=== PATIENT | female | born 1960 | race Caucasian/White ===

== ENCOUNTER 2019-06-07 08:40 | Emergency (ER) | payer MEDICARE, OTHER ==
[~2019-06-07] VITALS: Ht 172.7 cm; Wt 117.9 kg
[~2019-06-07 08:40] MED LIST: ADVIL200 MG PO; ASPIR-LOW81 MG PO; CYMBALTA60 MG PO; FOLIC ACID1 MG PO; GLUCOPHAGE500 MG PO; MECLIZINE HCL25 MG PO; OXYBUTYNIN CHLOR5 MG PO; PROMETHAZINE HC25 M1 PO; SOD CITRATE-CIT15 ML PO; TRAMADOL HCL50 MG PO; TRANSDERM-SCOP1 EA TD
[2019-06-07] MEDS ORDERED: PRAVASTATIN SOD20 MG PO (09:04)
[2019-06-07] MEDS ORDERED: DULOXETINE HCL60 MG PO (09:06)
[2019-06-07] MEDS ORDERED: JANUVIA50 MG PO (09:06)
[2019-06-07] MEDS ORDERED: HYDROCHLOROTHIA25 MG PO (09:07)
[2019-06-07] MEDS ORDERED: MYRBETRIQ50 MG PO (09:09)
[2019-06-07] MEDS ORDERED: KEFLEX500 MG PO (12:35)
--- NOTE | 2019-06-08 21:41 | EKG ---
[facility] [address] [place], [place] [address] Signed Normal sinus rhythm Normal ECG Confirmed by JUDITH VIEYRA MD ([id number]) on 06/08/2019 9:41:01 PM Electronically Signed By: JUDITH VIEYRA MD 06/08/19 2141 PATIENT NAME: PABLO MCINTOSH Electrocardiogram DATE OF : 58 PHYSICIAN: JUDITH VIEYRA MD REPORT #: [id number] REPORT IS CONFIDENTIAL AND NOT TO BE RELEASED WITHOUT AUTHORIZATION
== END 2019-06-07 13:16 | disposition home or self-care (01) ==
LOC: ED 08:40
DX: N39.0 Urinary tract infection, site not specified (principal); F41.9 Anxiety disorder, unspecified; F32.9 Major depressive disorder, single episode, unspecified; I10 Essential (primary) hypertension; E11.9 Type 2 diabetes mellitus without complications; Z87.891 Personal history of nicotine dependence; Z79.899 Other long term (current) drug therapy
CPT/HCPCS: 71045; 80053; 81001; 84484; 85025; 87077; 87088; 87186; 93005; 93010; 96361; 96365; 99285-25; J0696; J7030

== ENCOUNTER 2020-02-21 10:49 | Emergency (ER) | payer MEDICARE, OTHER ==
[~2020-02-21] VITALS: Ht 172.7 cm; Wt 127.0 kg
[~2020-02-21 10:49] MED LIST changes: +DULOXETINE HCL60 MG PO; +HYDROCHLOROTHIA25 MG PO; +JANUVIA50 MG PO; +KEFLEX500 MG PO; +MYRBETRIQ50 MG PO; +PRAVASTATIN SOD20 MG PO
--- OUTSIDE RECORDS SUMMARY | 2020-02-21 10:52 | XMS ---
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 - Has Care Guidelines CARE PROVIDERS Lucie Marks Log Tumbler/Fell Cutter 03/28/2018-Current PHONE: [phone] Guidelines Source: [employer] [facility] Guidelines Date: 07/06/2019 Care Coordination: Member is currently enrolled in Mental Health Services through [employer]. If services are needed through [employer] please call: [place] [phone] [place]; [phone] Crisis [phone] E.Moisés VISIT COUNT (12 MO.) 2 [facility] TOTAL 2 NOTE: Visits indicate total known visits. ED/UCC VISIT TRACKING (12 MO.) 02/21/2020 10:49 [facility] [place] TYPE: Emergency COMPLAINT: - BLOOD PRESSURE PROBLEM, POSSIBLE KIDNEY INFECTION 06/07/2019 08:40 [facility] [place] TYPE: Emergency COMPLAINT: - DIZZYNESS, LOW BP DIAGNOSES: - Personal history of nicotine dependence - Anxiety disorder, unspecified - Type 2 diabetes mellitus without complications - Essential (primary) hypertension - Other intermediate (current) drug therapy - Weakness - Major depressive disorder, single episode, unspecified - Urinary tract infection, site not specified - Diarrhea, unspecified INPATIENT VISIT TRACKING (12 MO.) No inpatient visits to display in this time frame [email or web address]
[2020-02-21] MEDS ORDERED: ATORVASTATIN CA10 MG PO (11:12)
[2020-02-21] MEDS ORDERED: LOSARTAN POTAS100 MG PO (11:13)
[2020-02-21] MEDS ORDERED: HYDROXYZINE HCL25 MG PO (11:14)
[2020-02-21] MEDS ORDERED: TRAZODONE HCL50 MG PO (11:14)
[2020-02-21] MEDS ORDERED: CEFPODOXIME PR100 MG PO (13:58)
== END 2020-02-21 14:18 | disposition home or self-care (01) ==
LOC: ED 10:49
DX: N12 Tubulo-interstitial nephritis, not specified as acute or chronic (principal); Z87.891 Personal history of nicotine dependence; Z79.899 Other long term (current) drug therapy; Z79.84 Long term (current) use of oral hypoglycemic drugs
CPT/HCPCS: 80053; 83605; 85025; 96365; 96375; 99283-25; J0696; J2405; J7030

== ENCOUNTER 2024-09-30 06:48 | Day surgery (SDC) | payer MEDICARE, OTHER ==
[~2024-09-30] VITALS: Ht 172.7 cm; Wt 105.0 kg
[~2024-09-30 06:48] MED LIST changes: +ATORVASTATIN CA10 MG PO; +CEFPODOXIME PR100 MG PO; +HYDROXYZINE HCL25 MG PO; +LACTATED RINGER'S 1,000 ML IV SCH; +LOSARTAN POTAS100 MG PO; +TRAZODONE HCL50 MG PO; +TRULICITY4.5 MG/0.5 SUB-Q; +VITAMIN D350 MC4 PO; +ZYRTEC10 M3 PO
[2024-09-30] MEDS ORDERED: LIDOCAINE HCL 1% 5 ML SDV INJ ONE (07:00)
[2024-09-30] MEDS ORDERED: IBLOOD GLUCOSE TEST STRIP 1 EA TEST VI PRN (07:00)
[2024-09-30 07:02] VITALS: BP 120/75
[2024-09-30 07:30] LABS: BASOPHILS 0.7 % (0.1-1.2); BASOPHILS, ABSOLUTE 0.07 K/uL (0.01-0.08); EOSINOPHILS 1.7 % (0.7-5.8); EOSINOPHILS, ABSOLUTE 0.17 K/uL (0.04-0.36); LYMPHOCYTES 21.7 % (19.3-51.7); MCH 29.1 PG (25.6-32.2); MCHC 34.0 g/dL (32.2-35.5); MCV 85.7 fL (79.4-94.8); MONOCYTES 6.5 % (4.7-12.5); MONOCYTES, ABSOLUTE 0.64 K/uL (0.24-0.86); NEUTROPHILS 69.1 % (34.0-71.1); NEUTROPHILS, ABSOLUTE 6.75 K/uL (1.56-6.13); RBC 4.77 M/uL (3.93-5.22)
[2024-09-30 07:45] LABS: ALT (SGPT) 20.0 U/L (14-59); AST (SGOT) 13.0 U/L (15-37); GLOMERULAR FILTRATION RATE,EST 77.0 mL/min (>60); PROTEIN, TOTAL 6.3 g/dL (6.4-8.2); UREA NITROGEN 12.0 mg/dL (7-18)
[2024-09-30] MEDS ORDERED: KETAMINE in NS 50 MG/5 ML SYR ONE (09:19)
[2024-09-30] MEDS ORDERED: LIDOCAINE HCL 2% 5 ML SDV ONE (09:24)
--- NOTE | 2024-09-30 10:10 | NUR ---
09/30/24 1010 Sheets,Melly 0935 PT ARRIVED TO PACU ON 6L VIA MASK, PT ASLEEP AND WAKES EASILY TO TACTILE STIMULI. PT REORIENTED TO PACU AND EASILY FALLS BACK TO SLEEP. PT ENCOURAGED TO PASS GAS NEEDED. 1002 O2 REMOVED, PT COUGHES OFF AND ON. O2 REMAINS HIGH 90S.
[2024-09-30 10:31] VITALS: BP 151/90
--- NOTE | 2024-10-02 09:29 | PATH ---
[facility] [address] [place], [place] [address] Signed SPECIMEN(S): A RANDOM ASCENDING COLON BIOPSY SPECIMEN(S): B RANDOM TRANSVERSE COLON BIOPSY SPECIMEN(S): C RANDOM DESCENDING COLON BIOPSY SPECIMEN SOURCE: A. RANDOM ASCENDING COLON BIOPSY B. RANDOM TRANSVERSE COLON BIOPSY C. RANDOM DESCENDING COLON BIOPSY CLINICAL HISTORY: Family history of colon cancer/diarrhea. Post-diverticulosis. Evaluate for microscopic colitis. A-C) biopsy FINAL PATHOLOGIC DIAGNOSIS: A. Random ascending colon biopsy: - Benign colonic mucosa with mild superficial epithelial lymphocytosis - Suggestive of minimal features of lymphocytic colitis - Negative for features of acute or chronic colitis B. Random transverse colon biopsy: - Benign colonic mucosa with focal epithelial lymphocytosis; suggestive of minimal lymphocytic colitis C. Random descending colon biopsy: - Benign colonic mucosa - Negative for features of acute, chronic, or microscopic colitis BB MICROSCOPIC EXAMINATION: Histologic sections of all submitted blocks are examined by light microscopy. These findings, together with the gross examination, support the pathologic diagnosis. GROSS DESCRIPTION: A. The specimen, labeled and designated "[place], random ascending colon biopsy," is received in formalin and consists of six salcedo soft tissue fragments, ranging from 0.1-0.6 cm. Entirely submitted in (A1). B. The specimen, labeled and designated "[place], random transverse colon biopsy," is received in formalin and consists of multiple salcedo soft tissue fragments, 0.1-0.5 cm. Entirely submitted in (B1). C. The specimen, labeled and designated "[place], random descending colon PATIENT NAME: PABLO MCINTOSH PATHOLOGY DATE OF : 58 REPORT #: [id number] PHYSICIAN: MARQUEZ AVERY PCP: KORI PINTO MD REPORT IS CONFIDENTIAL AND NOT TO BE RELEASED WITHOUT AUTHORIZATION [facility] [address] [place], [place] [address] Signed biopsy," is received in formalin and consists of multiple salcedo soft tissue fragments, 0.1-0.4 cm. Entirely submitted in (C1). AB (under the direct supervision of a pathologist) The Gross Description was prepared using a voice recognition system. The report was reviewed for accuracy; however, sound-alike word errors, addition and/or deletions may occur. If there is any question about this report, please contact Client Services. ADDITIONAL NOTES: Immunohistochemical and/or in situ hybridization studies if performed in this case included appropriate positive controls that reacted as expected. This test was developed and its performance characteristics determined by [facility]. It has not been cleared or approved by the U.S. Food and Drug Administration. The FDA has determined that such clearance or approval is not necessary. This test is used for clinical purposes. It should not be regarded as investigational or for research. [facility] is certified under the Clinical Laboratory Improvement Amendments of 1988 (CLIA) as qualified to perform high complexity clinical laboratory testing. PERFORMING LABORATORY: Technical component was performed by [facility], [address] [place] [id number] (CLIA# [id number]). Professional interpretation was performed by [facility] - [address] [place] [id number] (CLIA#: [id number]). Diagnostician: Cleve Alvarez MD Pathologist Electronically Signed 10/02/2024 Copies: ~ PATIENT NAME: PABLO MCINTOSH PATHOLOGY DATE OF : 58 REPORT #: [id number] PHYSICIAN: [facility] PATHOLOGY PCP: KORI PINTO MD REPORT IS CONFIDENTIAL AND NOT TO BE RELEASED WITHOUT AUTHORIZATION
== END 2024-09-30 10:41 | disposition home or self-care (01) ==
LOC: DS 06:48
PROVIDERS: Registered Nurse; ATTEND Surgery
PROC: 0DBL8ZX Excision of Transverse Colon, Via Natural or Artificial Opening Endoscopic, Diagnostic (ICD-10-PCS; 2024-09-30)
PROC: 0DBF8ZX Excision of Right Large Intestine, Via Natural or Artificial Opening Endoscopic, Diagnostic (ICD-10-PCS; 2024-09-30)
PROC: 0DBG8ZX Excision of Left Large Intestine, Via Natural or Artificial Opening Endoscopic, Diagnostic (ICD-10-PCS; principal; 2024-09-30 08:10)
DX: R19.7 Diarrhea, unspecified (principal); D72.820 Lymphocytosis (symptomatic); K57.30 Diverticulosis of large intestine without perforation or abscess without bleeding; K21.9 Gastro-esophageal reflux disease without esophagitis; E11.9 Type 2 diabetes mellitus without complications; E78.00 Pure hypercholesterolemia, unspecified; E03.9 Hypothyroidism, unspecified; I10 Essential (primary) hypertension; Z80.0 Family history of malignant neoplasm of digestive organs; Z87.891 Personal history of nicotine dependence; Z79.4 Long term (current) use of insulin; Z79.899 Other long term (current) drug therapy; Z88.8 Allergy status to other drugs, medicaments and biological substances
CPT/HCPCS: 00812; 36415; 80053; 85025; J2003; J2704; J3490; J7121